=== PATIENT | female | born 1975 | race Caucasian/White ===

== ENCOUNTER 2024-02-09 10:42 | Day surgery (SDC) | payer MEDICAID, SELFPAY ==
--- NOTE | 2024-02-01 16:11 | HP.PCM.OB_ITS ---
History and Physical Date of Admission: 02/08/24 PROBLEM: DUB ? DIAGNOSIS: DUB ? PAST SURGICAL HISTORY: PAST SURGICAL HISTORYExpand by Default PAST SURGICAL HISTORY Procedure Laterality Date ? BACK SURGERY HX ? 09/05/2022 ? CHOLECYSTECTOMY HX ? ? ? 18 years ago. ? PAST SURGICAL HISTORY OF ? 1992 ? Scoliosis surgery - problems since / awaiting the right age. was not having any symptoms before / after surgery ? TOTAL HIP REPLACEMENT Left 10/24/2023 ? ? PAST MEDICAL HISTORY: PAST MEDICAL HISTORYExpand by Default PAST MEDICAL HISTORY Diagnosis Date ? Abnormal Pap smear of cervix ? ? Anxiety ? ? never on medication ? Migraines ? ? Panic attack ? ? PUD (peptic ulcer disease) ? ? Scoliosis ? ? ? SUBJECTIVE: Recently had an episode of vaginal bleeding and she passed a clot ? SOCIAL HISTORY: SOCIAL HISTORYExpand by Default Social History ? Tobacco Use ? Smoking status: Never ? Smokeless tobacco: Never Vaping Use ? Vaping Use: Never used Substance Use Topics ? Alcohol use: Not Currently ? ? Comment: Wine a few times a year ? Drug use: Never ? ALLERGIESExpand by Default ALLERGIES Allergen Reactions ? Wool Rash ? Current Outpatient Medications on File Prior to Visit Medication Sig ? [START ON 05/02/2024] mupirocin (BACTROBAN) 2 % ointment Using a Q-Tip, apply 1/2 inch strip of ointment to both nostrils, twice daily, for 5 days before surgery Patient should start on May 02, 2024. ? cyclobenzaprine (FLEXERIL) 10 mg tablet Take 1 tablet by mouth two times a day as needed for muscle spasm. ? ampicillin (PRINCIPEN) 500 mg capsule Take 1 capsule by mouth four times daily. ? miconazole (MONISTAT 7) 2 % vaginal cream Use 1 Applicator vaginally daily at bedtime. ? L.acidophilus-L.rhamnosus (FLORAJEN WOMEN) 15 billion cell capsule Take 1 capsule by mouth once daily. ? MULTIVITAMIN ORAL Take 1 tablet by mouth once daily. ? Cholecalciferol, Vitamin D3, 25 mcg (1,000 unit) cap Take 1 tablet by mouth once daily. ? Magnesium Oxide 250 mg magnesium tab Take 2 tablets by mouth once daily. ? aspirin 325 mg tablet Take 1 tablet by mouth two times a day. ? omeprazole (PRILOSEC) 20 mg capsule Take 1 capsule by mouth once daily. ? No current facility-administered medications on file prior to visit. ? OBJECTIVE: ? VITALS: BP 114/76 Pulse 88 Resp 16 Ht 5' 2 (1.575 m) Wt 139 lb 6.4 oz (63.2 kg) LMP 11/06/2023 (Approximate) BMI 25.50 kg/m? ? HEENT: Normocephalic, atraumatic, Mucus membranes moist without lesions. ? SKIN: No lesions. ? CHEST: Clear to auscultation. No wheezes or rales. Good air exchange. ? HEART: Regular rate and rhythm No S3 or S4. No gallops or rubs. ? ABDOMEN: Soft, non-tender, non-distended, no masses, no hepatosplenomegaly. ? LOWER EXTREMITIES: No skin changes. ? ? ? ASSESSMENT: DUB ? PLAN: 1) Discussed r/b/a hysteroscopy, D&C, possible polypectomy. The rationale for the proposed surgery was discussed in addition to risks, benefits, and alte rnatives. General pre- and post-operative care was reviewed. Questions were answered. After discussion, the patient indicated a desire to proceed with the planned surgery. ? Val Alonso, DO Assessment & Plan Assessment/Plan (1) DUB (dysfunctional uterine bleeding):
[2024-02-09] VITALS (9 sets, daily range): BP systolic 107–129; BP diastolic 62–84; PULSE 76–80; RESP 16; TEMP 36.7–37; O2SAT 98–100; BMI 24.5
--- NOTE | 2024-02-09 | EMB_PTH ---
PATIENT: NATASHA CERDA [place] [facility] [id number] AGE/SX: 48/F ROOM: RE02/09/[address]: Dr. Val Alonso DO : 1975 BED: DIS: 02/09/2024 SPEC #: [id number] RECD: 02/09/24 16:55 STATUS: VALENTINA LYNSEY #: [id number] COLLEEN: 02/09/24 00:[address]: Val Alonso DEPT: SURGICAL PATHOLOGY RECD BY: Dajuan Pandya ENTERED: 02/12/24 10:19 SP TYPE: ENDOM BX/C OTHR DR: Dr. Rc Mai MD Tissues: Endometrium, NOS Procedures: Surgery Specimen Level IV HEADER OPERATION: Hysteroscopy, D&C, Symphion, polypectomy PRE-OP DIAGNOSIS: Dysfunctional uterine bleeding TISSUE SUBMITTED: Endometrial polyp and curetting's MICROSCOPIC DIAGNOSIS Endometrial polyp and Curettings: Simple endometrial hyperplasia without atypia. Fragments of benign endocervical epithelium. See comment. HITESH/mr 02/13/2024 COMMENT Clinical correlation and appropriate follow up are necessary. MICROSCOPIC DESCRIPTION Slides are reviewed. GROSS DESCRIPTION Received in fixative is one container labeled with the patient's name and designated Endometrial polyp and Curettings. The specimen consists of multiple irregular fragments of cuello soft tissue mixed with brownish-black tissue that in aggregate measure 7.5 x 3.0 x 0.3 cm. The specimen is totally submitted in three cassettes. HITESH/ 02/12/2024 TC:5 CPT:91969
[2024-02-09 11:22] LABS: Internal QC Validated? YES +Cl - CLEAR BKGD; Pregnancy, Urine Negative Negative
[2024-02-09] MEDS: AMPICILLIN IV (11:49)
[2024-02-09] MEDS: NORMAL SALINE 0.9% IV (11:49)
[2024-02-09] MEDS: Lactated Ringers 1,000 ML 15 ML IV (11:50)
[2024-02-09 11:54] LABS: Hematocrit 38.9 % (37-47); Hemoglobin 12.3 g/dL (12.0-15.0); Mean Corp Hgb Conc 31.6 g/dL (32-36); Mean Corpuscular Hgb 27.6 pg (27.0-32.0); Mean Corpuscular Volume 87.2 fL (81-99); Mean Platelet Vol. 10.5 fl (6.2-12.0); Platelet Count 259 K/mm3 (150-450); RBC Distribution Width CV 13.5 % (11.6-14.6); RBC Distribution Width SD 42.5 fl (35.1-43.9); Red Blood Count 4.46 M/mm3 (4.2-5.4); White Blood Count 5.4 K/mm3 (4.4-11.0)
[2024-02-09] MEDS: Lidocaine 1% /Epi 1:100 (20ml) 20 ML Vial (13:02)
--- NOTE | 2024-02-09 13:07 | DCINST_ITS ---
Discharge Instructions Diet Discharge Diet: No restrictions Activity Discharge Activity: May Not Drive (until you are more than 24 hours out from surgery) and May Not Shower (until you are more than 24 hours out from surgery) May resume sexual activity in: 1-2 weeks (nothing in the vagina and no soaking in water until the bleeding stops 1-2 weeks out) Weight Bearing Status: Weight bearing as tolerated Lifting Restrictions: no restrictions Dressing / Incision Call your doctor if you observe: Fever of 101 or Higher, Coldness, Increased Pain, Numbness or Tingling, Change in Color, Inability to urinate, Inability to have a bowel movement, Using more than 1 pad per hour, Shortness of breath, Dizziness, Fainting spells, Swelling in the ankles, Chest pain, Prolonged hiccupping, Increased palpitations (irregular heartbeat), Calf discomfort and Uncontrolled pain Follow Up Care Please Follow Up With: Val Alonso DO When: 1-2 weeks for post operative visit and review of pathology Test Results: Test results from this visit will be discussed in further detail at your follow- up appointment, if applicable. Discharge Plan Admission Primary Reason for Your Visit: Surgery Attending Provider: Val Alonso Primary Care Provider: Rc Mai Instructions Patient Instructions: Hysteroscopy Discharge Orders/Prescriptions Prescriptions: Continued hydrocodone-acetaminophen 10-325 mg tablet 1 tab PO Q6H PRN (Reason: pain) coenzyme Q10 [Co Q-10] 10 mg capsule 30 mg PO DAILY magnesium 250 mg tablet 250 mg PO DAILY multivitamin [Daily Multi-Vitamin] Tablet 1 tab PO DAILY ibuprofen 800 mg tablet 800 mg PO TID PRN PRN (Reason: pain) Disposition Disposition (needs filled in before D/C Order can be placed): Home, Self Care
--- NOTE | 2024-02-09 13:09 | OP.PCM_ITS ---
Problems Associated Problem List Diagnoses (1) DUB (dysfunctional uterine bleeding): Report of Operation Date of Procedure: 02/09/24 Pre-Operative Diagnosis: DUB Post-Operative Diagnosis: As above, endocervical polyp Surgery/Procedure Performed:: Hysteroscopy, D&C, polypectomy Description of Surgical Findings:: 1 Endocervical polyp noted. No endometrial polyp or fibroid visualized. Thicke bill endometrial lining. Surgeon: Val Alonso Type of Anesthesia: MAC Special Medications: None Specimen's removed: Endometrial polyp Endometrial curettings Drains: None Estimated Blood Loss (mL): < 10 Fluids Replaced: 550 mL fluid deficit Description of Procedure: The patient was taken to the operating room where MAC anesthesia was induced. She was prepped and draped in the dorsal lithotomy position using yellowfin stirrups. A weighted speculum was placed in the vagina to expose the cervix. The anterior lip of the cervix was grasped with a single-tooth tenaculum. 10 cc of 1% lidocaine with epinephrine was injected circumferentially into the cervix. The cervix was serially dilated to accommodate the Symphion hysteroscope. The Symphion hysteroscope was advanced into the endocervical canal and a polyp was noted with a stalk coming from the endocervical canal. The Symphion hysteroscope was then advanced into the uterine cavity which was distended with normal saline. Bilateral tubal ostia were visualized. No polyps were noted in the uterine cavity, however the endometrial lining was thickened appearing. The Symphion resection device was used to perform a curettage of the endometrial lining. The hysteroscope was slowly removed and once in the endocervical canal the polyp was again visualized. Under direct visualization the resection device was used to resect the endocervical polyp completely. The Symphion hysteroscope was removed. A sharp curettage was performed of the uterine lining. The endometrial curettings and polyp were sent to pathology for review. All instruments were removed from the vagina and a vaginal sweep was performed. Bleeding was hemostatic. Instrument sponge counts were correct. The patient was taken to the recovery room in stable condition. Grafts/Implants Used: None Procedure Start Time: 12:52 Procedure Stop Time: 13:05 Complications None Admit VTE Documentation VTE Present on Admission: No VTE Mechan Device Prophylaxis: SCD's
== END 2024-02-09 14:53 | disposition home or self-care (01) ==
LOC: SDC 10:49 → AC 10:50
PROVIDERS: PCP Student in an Organized Health Care Education/Training Program; Referring Provider Obstetrics & Gynecology; Visit Provider Obstetrics & Gynecology
PROC: 0UB98ZZ Excision of Uterus, Via Natural or Artificial Opening Endoscopic (ICD-10-PCS; CPT 58558; principal; 2024-02-09 12:20)
DX: N85.01 Benign endometrial hyperplasia (principal); N93.8 Other specified abnormal uterine and vaginal bleeding; N84.1 Polyp of cervix uteri; Z79.82 Long term (current) use of aspirin; Z79.899 Other long term (current) drug therapy; R93.89 Abnormal findings on diagnostic imaging of other specified body structures
CPT/HCPCS: 58558; 00952; 81025; 85027; 86850; 86900; 86901; 88305; J7120; J0290; J2405